=== PATIENT | male | born 1940 | race Caucasian/White ===

== ENCOUNTER 2016-11-17 15:13 | Inpatient (IN) | payer OTHER ==
[~2016-11-17] VITALS: Ht 193 cm; Wt 64.5 kg
--- NOTE | ~2016-11-17 | HC ---
[facility] [place] [address] CONSULTATION Name: ISAAC GONZALEZ Room #: 435-P [facility] IN .R.#: [id number] Admission: 11/17/16 Attend Phys: Cameron Soriano MD Discharge: 11/21/16 Date of : 42 Report #: [id number] THIS REPORT FOR: //name// CC: Faustino Soriano HISTORY OF PRESENT ILLNESS: The patient is a 76-year-old white male with a prior history of gastric cancer status post gastrectomy, who was noted to have multi-infarct dementia with aphasia. He had a fall at home and sustained multiple left-sided rib fractures with a small apical pneumothorax. His legs apparently got tangled up. His notes that he falls essentially annually. He has Itazjqvi-tt-ndeaed protein-calorie malnutrition. We are seeing him in rehabilitation medicine consultation. PAST MEDICAL HISTORY: Includes gastric cancer, subdural hematoma with evacuation, chronic reflux esophagitis, gastrostomy with gastrojejunostomy, rotator cuff surgery, and cholecystectomy. HABITS: Past tobacco use. No history of alcohol abuse. MEDICATIONS: Please see the full medication listing. SOCIAL HISTORY: House, spouse, used a front-wheeled walker, there are two steps in. She is the caregiver and is home with him. She was taking him to outpatient therapy prior to admission. REVIEW OF SYSTEMS: Did not offer any current complaints of chest pain, shortness of breath, or abdominal discomfort. He is a poor historian overall. PHYSICAL EXAMINATION: GENERAL: A 76-year-old white male, pleasant, in no obvious distress. VITAL SIGNS: Last recorded temperature 98.2, pulse 56, respirations 20, and blood pressure 115/71. NEUROLOGIC: The patient is alert. He is slow to speak with his aphasia. Minimal verbalizations. Tends to defer to his . He will follow basic 1 step commands. EXTREMITIES: Functional range of motion of both upper extremities, strength appears to be at least a grade 4+/5. Lower extremities, no focal calf swelling, functional range of motion with strength a grade 4+/5. DTRs are trace to 1. He is sit to stand, contact guard, gait 250 feet contact guard with a front-wheeled walker. No loss of balance. He was able to don and doff his socks standby assistance. ASSESSMENT: A 76-year-old white male with the following problem list: 1. Fall at home. 2. Multiple left-sided rib fractures. 3. Small pneumothorax with repeat x-[place] [address] CONSULTATION Name: ISAAC GONZALEZ Room #: 435-P [facility]#: [id number] Admission: 11/17/16 Attend Phys: Cameron Soriano MD Discharge: 11/21/16 Date of : 42 Report #: [id number] 4. Iwnftzac-cj-moqhwx protein-calorie malnutrition. 5. History of gastric cancer, status post gastrectomy. PLAN: The patient appears to be too high level to warrant an acute [address] [place] [address] inpatient rehabilitation stay. He is ambulating quite well. The is there as his caregiver. We would anticipate he should be able to return directly home with home healthcare as he further medically stabilizes. appears amenable to taking him back home when ready. Thank you for asking us to assist in this patient's care. <ELECTRONICALLY SIGNED> By: Faustino Shen MD 11/23/16 1350 1055 1120 Faustino Shen MD /nt
[~2016-11-17 15:13] MED LIST: ACETAMINOPHEN650 M5 PO; ACYCLOVIR 800800 MG PO; ADVAIR INH; ALEVE220 M1 PO; ARTHROTEC 75 T1 EAC1 PO; ATIVAN0.5 MG PO; AVODART0.5 MG PO; BIAXIN 500 MG500 M1 PO; C-500500 MG PO; CELEXA 20 MG TA20 M1 PO; CENTRUM SILVER1 EAC4 PO; CIMETIDINE300 MG PO; CIPRO250 M1 PO; COLACE 100 MG100 MG PO; DESYREL150 MG; DESYREL50 MG PO; DEXILANT60 MG PO; DOCUSATE SODIU100 MG PO; DOXYCYCLINE 10100 MG PO; DUONEB 2.5-0.5 M3 ML INH; ENSURE PT; FLORANEX PACKET1 GM PO; HYDROCODON-ACE1 EAC7 PO; IBUPROFEN 200200 M1; IBUPROFEN 200200 M1 PO; ITRACONAZOLE 1100 M1 PO; LEVAQUIN 500 M500 M2 PO; LEVOTHYROXIN0.025 MG PO; MELOXICAM7.5 MG PO; METOCLOPRAMIDE 55 M1 PO; MYAMBUTOL 400400 M1; NORCO 5-325 TA1 EACH PO; NYSTATIN1 EAC9 TOP; PREDNISONE50 MG PO; PRILOSEC 20 MG20 MG PO; REMERON15 MG PO; RIFAMPIN 300 M300 M1 PO; ROBITUSSIN DM118 ML PO; ROXICET 5-325 OR5 ML PO; TAMSULOSIN HCL0.4 MG PO; TRAZODONE HCL50 MG PO; TYLENOL325 MG PO; VASOLEX OINTMEN60 G1 TOP; ZOFRAN4 MG PO; [UNRECOGNIZED DRUG - REMARK]
[2016-11-17 15:58] VITALS: BP 101/61
[2016-11-17 18:30] VITALS: BP 110/68
[2016-11-17 18:31] LABS: ABSOLUTE NEUTROPHILS 6.1 thou/uL (1.4-8.2); BASOPHILS 0.5 % (0.0-2.0); EOSINOPHILS 2.3 % (0.0-3.0); HEMATOCRIT 39.7 % (42.0-52.0); HEMOGLOBIN 13.5 gm/dL (14.0-18.0); LYMPHOCYTES 15.6 % (24.0-44.0); MCV 90.9 fL (80.0-100.0); MONOCYTES 8.2 % (1.0-8.0); PLATELET COUNT 151 thou/uL (150-400); POLYS 73.4 % (36.0-66.0); RBC 4.37 mil/uL (4.50-6.00); RDW 14.4 % (10.5-14.5); WBC 8.3 thou/uL (4.0-11.0)
[2016-11-17 18:33] LABS: MANUAL DIFF NO
[2016-11-17 18:40] LABS: CALCIUM 9.2 mg/dL (8.5-10.1); CREATININE 0.9 mg/dL (0.7-1.3); POTASSIUM 4.4 mmol/L (3.5-5.1)
[2016-11-17 18:56] VITALS: BP 117/73
[2016-11-17 19:20] VITALS: BP 111/65
[2016-11-18 03:25] LABS: HEMATOCRIT 36.2 % (42.0-52.0); HEMOGLOBIN 12.3 gm/dL (14.0-18.0); MCH 30.5 pg (26.0-34.0); MCHC 33.9 g/dL (28.0-37.0); RBC 4.03 mil/uL (4.50-6.00); RDW 14.3 % (10.5-14.5); WBC 7.1 thou/uL (4.0-11.0)
[2016-11-18 03:35] VITALS: BP 105/55
[2016-11-18 04:41] LABS: CALCIUM 8.6 mg/dL (8.5-10.1); CREATININE 0.8 mg/dL (0.7-1.3); POTASSIUM 3.9 mmol/L (3.5-5.1)
[2016-11-18 08:00] VITALS: BP 101/62
[2016-11-18 16:00] VITALS: BP 111/71
[2016-11-18 19:35] VITALS: BP 106/64
[2016-11-19 03:40] VITALS: BP 104/65
[2016-11-19 07:38] VITALS: BP 100/58
[2016-11-19 16:00] VITALS: BP 103/57
[2016-11-19 18:34] VITALS: BP 111/75
[2016-11-20 03:50] VITALS: BP 110/68
[2016-11-20 08:00] VITALS: BP 115/71
[2016-11-20 16:00] VITALS: BP 138/55
[2016-11-20 19:20] VITALS: BP 113/65
[2016-11-21 04:05] VITALS: BP 112/68
[2016-11-21 06:24] LABS: HEMATOCRIT 34.6 % (42.0-52.0); HEMOGLOBIN 11.9 gm/dL (14.0-18.0); MCH 30.7 pg (26.0-34.0); MCHC 34.4 g/dL (28.0-37.0); MCV 89.3 fL (80.0-100.0); RBC 3.88 mil/uL (4.50-6.00); RDW 13.9 % (10.5-14.5); WBC 6.2 thou/uL (4.0-11.0)
[2016-11-21 06:34] LABS: CALCIUM 8.6 mg/dL (8.5-10.1); CREATININE 0.7 mg/dL (0.7-1.3)
[2016-11-21 08:37] VITALS: BP 112/72
[2016-11-21] MEDS ORDERED: TYLENOL325 MG PO (15:09)
[2016-11-21] MEDS ORDERED: LIDODERM 5%1 PATCH TRANSDERM (15:10)
== END 2016-11-21 17:08 | DRG 199 ==
LOC: ER 15:13 → 4S 17:26 → EROBS 17:26 → 4S 18:52
PROVIDERS: Hospitalist; Nurse Practitioner
DX: S27.0XXA Traumatic pneumothorax, initial encounter (principal); E43 Unspecified severe protein-calorie malnutrition; S22.42XA Multiple fractures of ribs, left side, initial encounter for closed fracture; Z68.1 Body mass index [BMI] 19.9 or less, adult; F32.9 Major depressive disorder, single episode, unspecified; K21.0 Gastro-esophageal reflux disease with esophagitis; W10.8XXA Fall (on) (from) other stairs and steps, initial encounter; F03.90 Unspecified dementia, unspecified severity, without behavioral disturbance, psychotic disturbance, mood disturbance, and anxiety; Z85.028 Personal history of other malignant neoplasm of stomach; Z90.3 Acquired absence of stomach [part of]; Z90.49 Acquired absence of other specified parts of digestive tract; Z87.01 Personal history of pneumonia (recurrent); Z79.899 Other long term (current) drug therapy; Z91.81 History of falling; Z87.891 Personal history of nicotine dependence; Z88.2 Allergy status to sulfonamides; Z88.6 Allergy status to analgesic agent; Z91.013 Allergy to seafood; Y92.098 Other place in other non-institutional residence as the place of occurrence of the external cause; Y93.89 Activity, other specified; Y99.8 Other external cause status
CPT/HCPCS: 10100

== ENCOUNTER 2018-05-21 05:37 | Inpatient (IN) | payer OTHER ==
[2018-05-21] VITALS (8 sets, daily range): BP systolic 107–125; BP diastolic 67–80
[~2018-05-21] VITALS: Ht 193 cm; Wt 55.3 kg
--- NOTE | ~2018-05-21 | HC ---
[facility] [place] [address] CONSULTATION Name: ISAAC GONZALEZ Room #: 362-P [facility] IN M.R.#: [id number] Admission: 05/21/18 Attend Phys: Vinnie Murillo MD Discharge: Date of : 41 Report #: [id number] THIS REPORT FOR: //name// CC: Faustino Murillo DATE OF SERVICE: 05/22/2018 HISTORY OF PRESENT ILLNESS: The patient is a 77-year-old white male who was admitted with increasing weakness, failure to thrive, decline over the past year. He had a problem with recurrent falls. There is a concern that he may have possible recurrent aspiration pneumonia. He is being covered with antibiotics and further clinical correlation is being assessed. He is noted to have severe debility with cachexia. We are seeing him in rehabilitation medicine consultation. He has a prior history of significant dementia and aphasia due to have multi-infarct history. He has had a past subdural hematoma with evacuation, chronic reflux esophagitis, gastrectomy with gastrojejunostomy tube removed 2010, rotator cuff surgery, cholecystectomy, and depression. ALLERGIES: SHELLFISH, HYDROMORPHONE AND SULFA. SOCIAL HISTORY: Previously, he had been living with his who is his caregiver, who was needing a lot of assistance. He had been utilizing a walker at home. I do not have the most recent historical data on his function prior to admission. REVIEW OF SYSTEMS: Difficult with his dementia. PHYSICAL EXAMINATION: GENERAL: A 77-year-old cachectic white male lying in bed, pleasant, in no obvious distress. He has some facial excoriations. VITAL SIGNS: Temperature is 98.1, pulse 55, respirations 14, blood pressure 144/74. NEUROLOGIC: He can tell me the place, was unable to tell me the year, appeared to be able to tell me basic naming, but there is considerable latency and a lot of dysarthria. We will follow basic 1 step commands. He has functional range of motion of both upper extremities. Strength is grade 4- to 3+/5. Lower extremities functional range of motion, strength is grade 4- to 3+/5. DTRs are trace to 1. Speech therapy has seen him and noted dysphagia and is on a mechanical soft honey thickened liquid diet. ASSESSMENT: A 77-year-old white male with the following problem list: 1. History of multiple infarct with dimension and aphasia. 2. Dysphagia, mechanical soft honey thickened liquid. 3. Recurrent falls. 4. Possible recurrent aspiration pneumonia. [facility] [address] [place] [address] CONSULTATION Name: ISAAC GONZALEZ Room #: 362-P [facility] IN M.R.#: [id number] Admission: 05/21/18 Attend Phys: Vinnie Murillo MD Discharge: Date of : 41 Report #: [id number] 5. Possible sepsis. 6. Cachexia. 7. Stage 2 left gluteal ulcer with wound care involved. PLAN: I am uncertain if he would meet the criteria for an acute in-hospital inpatient rehabilitation stay. At this point, we will follow along with you. Thank you very much to assist in this patient's care. By: 1125 1714 Faustino Shen MD /nt
[~2018-05-21 05:37] MED LIST changes: +CEFUROXIME250 MG PO; +LIDODERM 5%1 PATCH TRANSDERM; +MIRALAX17 GM PO; +TOPROL XL25 MG PO
[2018-05-21 06:48] LABS: HEMATOCRIT 36.3 % (42.0-52.0); HEMOGLOBIN 12.6 gm/dL (14.0-18.0); MCH 30.1 pg (26.0-34.0); MCHC 34.7 g/dL (28.0-37.0); MCV 86.8 fL (80.0-100.0); PLATELET COUNT 161 thou/uL (150-400); RBC 4.18 mil/uL (4.50-6.00); RDW 14.4 % (10.5-14.5); WBC 14.5 thou/uL (4.0-11.0)
[2018-05-21 06:54] LABS: URINE BILIRUBIN NEGATIVE (Negative); URINE BLOOD 1+ (Negative); URINE CLARITY CLEAR; URINE COLOR YELLOW; URINE GLUCOSE-RANDOM* NEGATIVE (Negative); URINE KETONES NEGATIVE (Negative); URINE LEUKOCYTES-REFLEX NEGATIVE (Negative); URINE NITRITE-REFLEX NEGATIVE (Negative); URINE PROTEIN (DIPSTICK) NEGATIVE (Negative); URINE UROBILINOGEN 0.2 E.U./dl (0.2-1.0)
[2018-05-21 06:57] LABS: ANION GAP 9 mmol/L (7-16); BUN 19 mg/dL (7-18); CALCIUM 9.1 mg/dL (8.5-10.1); CHLORIDE 100 mmol/L (98-107); CO2 28 mmol/L (21-32); CREATININE 0.8 mg/dL (0.7-1.3); GLUCOSE 121 mg/dL (74-106); POTASSIUM 3.1 mmol/L (3.5-5.1); SODIUM 137 mmol/L (136-145)
[2018-05-21 07:01] LABS: APTT 29.9 Seconds (24.5-32.8); INR 1.1
[2018-05-21 07:05] LABS: MAGNESIUM 1.8 mg/dL (1.8-2.4); SGOT 69 U/L (15-37); SGPT 30 U/L (30-65); TOTAL BILIRUBIN 0.9 mg/dL (<0.1-1.0); TOTAL PROTEIN 6.6 g/dL (6.4-8.2); TROPONIN-I <0.06 ng/mL (<0.06)
[2018-05-21 07:08] LABS: SQUAMOUS 0-3 Few /LPF (0-3)
[2018-05-21 07:09] LABS: BACTERIA-REFLEX 1-9 Few /HPF (None Seen); CASTS None Seen /LPF (None Seen); CRYSTALS None Seen /LPF (None Seen); MUCUS 0-3 Light strn/LPF (None Seen); URINE WBC-REFLEX 0-5 Rare /HPF (0-5)
[2018-05-21 07:12] LABS: ABSOLUTE NEUTROPHILS 13.8 thou/uL (1.4-8.2); PLATELET ESTIMATE NORMAL
[2018-05-21 07:13] LABS: TOXIC GRANULATION SLIGHT
[2018-05-21] MEDS ORDERED: CIPRO250 M1 PO (08:00)
[2018-05-21] MEDS ORDERED: FLOMAX0.4 MG PO (08:01)
[2018-05-21] MEDS ORDERED: TOPROL XL25 MG PO (08:01)
--- NOTE | 2018-05-21 08:25 | EKG ---
[address] [address] ELECTROCARDIOGRAM REPORT Name: LISAISAAC YAZMIN Room #: 170-10 ADM IN M.R.#: [id number] Admission: 05/21/18 Attend Phys: Vinnie Murillo MD Discharge: Date of : 41 Report #: [id number] THIS REPORT FOR: //name// [facility] ED Test Date: 2018-05-21 Test Time: 07:01:56 Pat Name: ISAAC GONZALEZ Department: Room: 170 Gender: M Entry Engineer: SALINAS : 1940 Requested By: Ventura Agosto Order Number: [id number] MD: Alex Zepeda Measurements Intervals [place] Rate: 75 P: -78 IL: 233 QRS: -20 QRSD: 80 T: 67 QT: 394 QTc: 441 Interpretive Statements Sinus or ectopic atrial rhythm Prolonged IL interval Borderline left axis deviation Anteroseptal infarct, age indeterminate Compared to ECG 11/05/2017 17:51:34 Electronically Signed On 05-21-2018 8:24:55 TIMBER ESTIMATOR by Alex Zepeda [email or web address] <ELECTRONICALLY SIGNED> By: Alex Zepeda MD 05/21/18 0824 0 0 Alex Zepeda MD /MED
--- NOTE | 2018-05-21 09:52 | NUR ---
PT AND FAMILY ORIENTED TO ROOM AND UNIT. BED LOW AND LOCKED, SIDE RAILS UPX 3, CALL LIGHT. WOUBD UPPER SACRAL AREA PHOTOGRAPHED AND WOUND CARE CONSULTED. WILL CONTINUE TO ASSESS.
--- NOTE | 2018-05-21 11:31 | NUR ---
CLEANED DRESSING ON SACRAM AREA AND PLACED OPTIFOAM OVER AREA.
--- NOTE | 2018-05-21 15:00 | NUR ---
GAVE PATIENT BATH, CHANGED LINENES, CHANGED IV DRESSING ON LEFT WRIST
--- NOTE | 2018-05-21 15:22 | NUR ---
WOUND CONSULT: PT. WAS SEEN TODAY BY DR. SYED AND MYSELF. PT. HAS A STAGE 2 PRESSURE ULCER TO HIS SACRUM AND A STAGE 1 TO HIS RIGHT ISCHIAL TUBEROISTY. PT. WOUNDS SHOW NO SIGNS OR SYMPTOMS OF INFECTION AT THIS TIME. RECOMMENDATIONS: MOISTURE BARRIER CREAM TO WOUNDS DAYTON PUMP BOOTS TURN Q2 HOURS PT. AND STAFF NURSE WERE INSTRUCTED ON PLAN OF CARE.
--- NOTE | 2018-05-21 18:06 | NUR ---
PRAFO BOOT PLACED ON PT AND BED FLORICULTURIST USED. PT ATE MOST OF DINNER AND PT AND OT WILL WORK WITH PT IN THE AM.
[2018-05-22 05:20] VITALS: BP 110/66
[2018-05-22 05:38] LABS: HEMATOCRIT 32.3 % (42.0-52.0); HEMOGLOBIN 10.8 gm/dL (14.0-18.0); MCH 29.8 pg (26.0-34.0); MCHC 33.3 g/dL (28.0-37.0); MCV 89.4 fL (80.0-100.0); RBC 3.61 mil/uL (4.50-6.00); RDW 14.9 % (10.5-14.5); WBC 7.8 thou/uL (4.0-11.0)
[2018-05-22 05:54] LABS: CALCIUM 8.3 mg/dL (8.5-10.1); CREATININE 0.9 mg/dL (0.7-1.3); MAGNESIUM 1.9 mg/dL (1.8-2.4); POTASSIUM 3.2 mmol/L (3.5-5.1)
--- NOTE | 2018-05-22 07:32 | NUR ---
ASSUMED PT CARE AT 1900. VSS, PT AWAKE AND ALERT. FOLLOWS COMMANDS BUT APHASIC AND ONLY RESPONDS "YEAH" TO ALL QUESTIONS ASKED. PT IS INCONTINENT. HE HAS A CONDOM CATHETER ON. Q2 TURNS COMPLETED, ASSESSEMENTS AND MEDS GIVEN ARE DOCUMENTED. PT SWALLOWS PILLS WELL. PT SLEPT WELL ALL NIGHT. PT HAD A SMEAR OF BM. WOUND CARE DONE PER ORDERS. PT APPEARS TO BE IN NO APPARENT DISTRESS, WILL CONTINUE TO MONITOR PER POC.
[2018-05-22 10:30] VITALS: BP 144/74
--- NOTE | 2018-05-22 11:01 | NUR ---
WAS IN ROOM OBTAINING VITAL SIGNS, NOTICED THAT PT WAS BRADYCARDIC PER O2 SAT MEASUREMENT, WENT OUT TO MONITOR TO VIEW PT HEART RATE. NOTIFIED JOSE OBANDO THAT PT WAS BRADYCARDIC. PT DID NOT RECEIVE METOPROLOL DUE TO LOW HEART RATE. GERIATRIC TEAM AT BEDSIDE, CAD DRAFTSMAN VERBALIZED TO HOLD ALL PO MEDS AT THIS TIME. VERBAL ORDER ENTERED BY TOPHER AT THIS TIME FOR STAT EKG. AWAITING COW TESTER TO OBTAIN. NOTIFIED ACADEMIC SPECIALIST ABOUT THE SITUATION.
[2018-05-22 12:10] VITALS: BP 117/75
--- NOTE | 2018-05-22 14:34 | NUR ---
WOUND FOLLOW UP: PT. WAS SEEN TODAY BY DR. SYED AND MYSELF. PT. WOUNDS ARE CLINICALLY BETTER TODAY THAN YESTERDAY. RECOMMENDATIONS: CONTINUE WITH CURRENT PLAN OF CARE. PT. AND STAFF NURSE WERE INSTRUCTED ON PLAN OF CARE.
--- NOTE | 2018-05-22 14:54 | NUR ---
DISCHARGE PLANNING. POST ACUTE CARE RECOMMENDED PER ATTENDING AT DISCHARGE. REFERRAL FAXED TO [facility] FOR DC NEEDS. BIANKA/EVAN NOTIFIED OF REFERRAL AND PATIENTS DISCHARGE NEEDS. WILL REVIEW REFERRAL AND CONTACT CM ONCE COMPLETE. FOLLOWING TO ASSIST.
--- NOTE | 2018-05-22 14:59 | NUR ---
INITIAL ASSESSMENT: Received consult for discharge planning. SW reviewed chart and spoke with nursing and attending physician. Pt was admitted from home due to weakess/frequent falls/failure to thrive. P with hx of aphasia. SW met with pt and at bedside. Introduced role of SW. Pt is alert to self. Pt able to only state "yeah" to questions at this time. Pt's states that he is able to communicate at times, and she is able to understand what pt needs. Pt's reports they are working on ordering a tablet device that will assist with pt communicating with others. Pt and are in the process of selling their 3-story home and moving into a one-level home. They will be out of their current home at the end of the month. Pt normally ambulates with a walker. [facility] in the past. Pt has used [facility] and recently did outpatient therapy at [facility]. SW discussed options for post-acute placement. Pt's requests referral to be sent to [facility] for review. Pt's PCP is Dr. Faustino Pittman. city planner to fax referral to [facility]. SW is following to assist as needed with discharge planning.
[2018-05-22 15:42] VITALS: BP 142/72
--- NOTE | 2018-05-22 18:58 | HC ---
[facility] [place] [address] CONSULTATION Name: ISAAC GONZALEZ Room #: 362-P [facility] IN M.R.#: [id number] Admission: 05/21/18 Attend Phys: Vinnie Murillo MD Discharge: Date of : 41 Report #: [id number] THIS REPORT FOR: //name// CC: Faustino Murillo DATE OF SERVICE: 05/21/2018 CHIEF COMPLAINT: Multiple pressure ulcerations following falls. HISTORY OF PRESENT ILLNESS: This is a 77-year-old male patient who was admitted to the hospital through the Emergency Department. The patient was admitted with failure to thrive and generalized weakness. He apparently lives at home with his elderly . He was dropped off by his daughter. There was no one here to answer any questions. The patient is not able to answer any questions. His only answer is "yeah." PAST MEDICAL HISTORY: Positive for dementia, failure to thrive, left hip pain, pneumothorax, recurrent falls and history of shingles. MEDICATION ALLERGIES: INCLUDE SHELLFISH, HYDROMORPHONE AND SULFA. MEDICATIONS: Currently include Cipro, metoprolol, tamsulosin and trazodone. PAST MEDICAL HISTORY: The patient's past medical history also include history of gastric cancer. He has had gastrectomy and jejunostomy. Apparently that tube was removed in 2010. SOCIAL HISTORY: The patient is a previous smoker and previous history of alcohol use. REVIEW OF SYSTEMS: Unobtainable as the patient is unable to answer any questions about himself. PHYSICAL EXAMINATION: VITAL SIGNS: At this time include pulse 69, respiratory rate 22, blood pressure 121/78 and temperature 97.7. GENERAL: This is a chronically ill-appearing male patient who appears to be in mild discomfort. HEENT: Examination of the head is normocephalic. Nose and throat are clear. There is an abrasion to his right cheek area. NECK: Supple. LUNGS: Clear. HEART: Regular. ABDOMEN: Soft. He is generally cachectic and his ribs are very visible. PELVIC: Pelvic region demonstrates what appears to be stage 1 pressure [facility] [address] [place] [address] CONSULTATION Name: ISAAC GONZALEZ Room #: 362-P ADM IN M.R.#: [id number] Admission: 05/21/18 Attend Phys: Vinnie Murillo MD Discharge: Date of : 41 Report #: [id number] ulceration to the right ischial tuberosity. There is a significant area of nonblanching erythema. He has stage 2 pressure ulceration to the left gluteal region. EXTREMITIES: The patient has abrasions to his left knee and heels are intact. LABORATORY DATA: Includes sodium 137, potassium 3.1, chloride 100, CO2 of 28, BUN 19, creatinine 0.8 and glucose 121. Albumin is 3.0 and total protein is 6.6. White blood cell count is 14.5 with hemoglobin 12.6. CLINICAL IMPRESSION: 1. Stage 1 pressure ulcer to the right ischial tuberosity. 2. Stage 2 pressure ulcer of the left gluteal region. 3. Abrasion to the left knee and the right cheek. 4. Advanced dementia. 5. Mild protein calorie malnutrition based on albumin. He would appear to be significantly more malnourished by physical appearance. 6. Cachexia. RECOMMENDATIONS: At this point in time, the patient will require a low air loss mattress. He will also require a bed extension. He will need PRAFO boots while in bed. We will recommend a moisture barrier cream to the sacral and gluteal region. The knee and cheek can be left open to air. He will need q. 2 hour turning and positioning and aggressive nutritional support. We will recommend continuing his current medications. I do appreciate being asked to see him in consultation. <ELECTRONICALLY SIGNED> By: Alfonso Panda MD 05/22/18 1858 1401 2333 Alfonso Panda MD /nt
--- NOTE | 2018-05-22 19:15 | NUR ---
Pt awake and responsive. Pt will attempt to follow simple requests. Generalized weakness. Pt has baseline of some expressive aphasia. Speech is difficult to understand. DUMONT. Out of bed to chair by OT. Sinus bradycardia this morning with rate dipping to 40s. EKG done per Dr Foster order. BP stable. HR increased to sinus rhythm. Metoprolol was held due to bradycardia. expressing concern about Metoprolol and does not want pt receiving this medication. Pt had video swallow in the morning. Pt fed lunch/dinner by HEALTH PROFESSOR. No apparent difficulty with swallowing. Aequate urine output. Saline lock intact R AC with IV infusing at 75 ml/hr. Report given to RN assuming care.
[2018-05-22 20:01] VITALS: BP 131/82
[2018-05-23 04:17] VITALS: BP 121/72
--- NOTE | 2018-05-23 05:07 | NUR ---
Patient making slow progress towards outcome goals. High fall risk, fall precautions in place. Oxygenation optimal on room air. Vital signs stable. Rhytm bradycardic 50's. Denies pain. Incontinent of urine, external male catheter leaking, optifoam applid to coccyx.
[2018-05-23 07:40] VITALS: BP 133/76
--- NOTE | 2018-05-23 09:35 | EKG ---
[address] [place] [address] ELECTROCARDIOGRAM REPORT Name: ISAAC GONZALEZ Room #: 362-P ADM IN M.R.#: [id number] Admission: 05/21/18 Attend Phys: Vinnie Murillo MD Discharge: Date of : 41 Report #: [id number] THIS REPORT FOR: //name// [facility] Test Date: 2018-05-22 Test Time: 11:16:39 Pat Name: ISAAC GONZALEZ Department: Room: 362 P Gender: M Hospital Attendant: Ksenia MCCAULEY : 1940 Requested By: Bradley Patel Order Number: [id number] MD: Quan Osorio Measurements Intervals [place] Rate: 54 P: 75 DE: 215 QRS: 53 QRSD: 101 T: 71 QT: 460 QTc: 436 Interpretive Statements Sinus bradycardia Atrial premature complex Borderline prolonged DE interval septal infarct, age indeterminate Compared to ECG 05/21/2018 07:01:56 Atrial premature complex(es) now present Electronically Signed On 05-23-2018 9:35:30 CLIENT CARE COORDINATOR by Quan Osorio [email or web address] <ELECTRONICALLY SIGNED> By: Quan Osorio MD, [facility] 05/23/18 0935 1116 1116 Quan Osorio MD, [facility] /EPI
[2018-05-23 11:52] VITALS: BP 144/61
--- NOTE | 2018-05-23 13:26 | NUR ---
SW reviewed chart and spoke with attending physician. Pt is progressing towards goals for discharge. Discharge anticipated in 1-2 days. HOMER faxed updated clinical and therapy notes to [facility] for review. Notified [facility] liaison and admissions of anticipated discharge. Awaiting input from [facility] at this time. HOMER is following to assist as needed with discharge planning.
--- NOTE | 2018-05-23 14:08 | NUR ---
WOUND FOLLOW UP: PT. WAS SEEN TODAY BY DR. SYED AND MYSELF. PT. WOUNDS ARE CLINICALLY BETTER AT THIS TIME. RECOMMENDATIONS: CONTINUE WITH CURRENT PLAN OF CARE. PT. AND STAFF NURSE WERE INSTRUCTED ON PLAN OF CARE.
[2018-05-23 17:03] VITALS: BP 137/78
--- NOTE | 2018-05-23 18:44 | NUR ---
care of pt assumed this am @ 0700. pt w/ expressive asphasia, verbalizing "yeah" to all yes and no questions even when the rn knew the answers were no. pt given a pad a paper to write out requests, able to right out 'bed' when he wanted to leave his chair and go back to bed. pt w/ a very poor appetite, need for set up tray, only consumed 20-25% of each meal today. pt encouraged to drink his honey thick liquids, but not happy about the drinks. spoke w/ on phone and she said that he does not like honey thick liquids. asked for liquid supplements/ensure w/ meal trays to increase the calories he needs in a day. ivf infusing. condom cath used rt incontinence of urine. multiple stools today that pt was incontinent of. rn from [facility] here to assess pt for transfer to their facility in the next few days.
[2018-05-23 20:21] VITALS: BP 156/79
--- NOTE | 2018-05-24 04:19 | NUR ---
Patient making slow progress towards outcome goals. Appetite poor, took sips of liquids and ate ensure pudding. IVFluids infusing. Incontinent of bowel and bladder. External male catheter replaced. Turned to sides. Vital signs and rhythm stable.
[2018-05-24 04:49] VITALS: BP 109/62
[2018-05-24 04:51] LABS: HEMATOCRIT 34.2 % (42.0-52.0); HEMOGLOBIN 11.6 gm/dL (14.0-18.0); MCH 30.6 pg (26.0-34.0); RBC 3.79 mil/uL (4.50-6.00); RDW 14.8 % (10.5-14.5); WBC 5.6 thou/uL (4.0-11.0)
[2018-05-24 05:05] LABS: CALCIUM 8.9 mg/dL (8.5-10.1); CREATININE 0.9 mg/dL (0.7-1.3); POTASSIUM 4.1 mmol/L (3.5-5.1)
[2018-05-24 07:18] VITALS: BP 110/77
--- NOTE | 2018-05-24 08:47 | NUR ---
PT SITTING UP IN BED EATING BREAKFAST.AM MEDS GIVEN AND TX'S TO FACIAL ABRASION AREAS AND LEFT KNEE ORDERED. IV ABT AND FLUIDS INFUSING ORDERED.
--- NOTE | 2018-05-24 15:13 | NUR ---
PT UP IN BEDSIDE CHAIR. CONT ON IV FLUIDS AND IV ABT. PT TO DISCHARGE TO [facility] TOMMORROW.
--- NOTE | 2018-05-24 16:03 | NUR ---
HOMER reviewed chart and spoke with nursing and attending physician. Pt is progressing towards goals for discharge. Discharge to SNF is anticipated for tomorrow. HOMER discussed case with [facility] liaison, who states they are able to admit pt tomorrow. HOMER spoke with pt's via phone to provide update. Pt's would prefer mid-afternoon transportation if available. Final discharge orders/summary will need to be faxed to [facility]. Weekend residential coordinator will arrange transportation. Chart copy will need to be updated. SW is available should needs arise. [place]-- Admissions: [phone]
[2018-05-24 16:39] VITALS: BP 152/94
--- NOTE | 2018-05-24 16:39 | NUR ---
WOUND FOLLOW UP: PT. WAS SEEN TODAY BY DR. SYED AND MYSELF. PT. WOUNDS ARE CLINICALLY BETTER. RECOMMENDATIONS: CONTINUE WITH CURRENT PLAN OF CARE. PT. AND STAFF NURSE WERE INSTRUCTED ON PLAN OF CARE.
[2018-05-24 20:04] VITALS: BP 149/81
--- NOTE | 2018-05-25 02:41 | NUR ---
patient is alert. patient has expressive asphia. unable to assess orientation. patient has some breakdown on coccyx but is able to turn self. patient refused to be repositioned when asked. patient is incontient patient has an exturnal male cath. patient is on room air. patient is on thickened liquids (honey) and mechanical choped diet. patient does not appear to be in any pain. patientis had a complete bed change. patient is resting comfortabley in bed. wcm. patient is progressing to goals
[2018-05-25 05:27] VITALS: BP 131/76
[2018-05-25 08:17] VITALS: BP 141/71
[2018-05-25] MEDS ORDERED: AUGMENTIN 875-1 EACH PO (10:47)
[2018-05-25] MEDS ORDERED: BACITRACIN ZIN120 GM TOP (10:47)
[2018-05-25] MEDS ORDERED: ACETAMINOPHEN325 M1 PO (10:47)
--- NOTE | 2018-05-25 11:49 | NUR ---
DISCHARGING TO [facility] TODAY. [facility] PER TELE. [facility]. SWITCHING TO [facility]. WILL CALL REPORT, FAX DISCHARGE SUMMARY TO [facility] FOR DISCHARGE THIS AFTERNOON. FREQUENT CHECKS; WILL CONTINUE TO MONITOR.
[2018-05-25 11:54] VITALS: BP 130/74
== END 2018-05-25 16:40 | DRG 871 ==
LOC: ER 05:37 → 3W 07:56 → EROBS 07:56 → 3W 08:45
PROVIDERS: Emergency Medicine; ADMIT Internal Medicine
DX: A41.9 Sepsis, unspecified organism (principal); J69.0 Pneumonitis due to inhalation of food and vomit; E43 Unspecified severe protein-calorie malnutrition; Z68.1 Body mass index [BMI] 19.9 or less, adult; F32.9 Major depressive disorder, single episode, unspecified; F03.90 Unspecified dementia, unspecified severity, without behavioral disturbance, psychotic disturbance, mood disturbance, and anxiety; Z88.6 Allergy status to analgesic agent; R62.7 Adult failure to thrive; S09.90XA Unspecified injury of head, initial encounter; L89.311 Pressure ulcer of right buttock, stage 1; L89.322 Pressure ulcer of left buttock, stage 2; S80.212A Abrasion, left knee, initial encounter; S00.81XA Abrasion of other part of head, initial encounter; R13.10 Dysphagia, unspecified; E87.6 Hypokalemia; K21.9 Gastro-esophageal reflux disease without esophagitis; Z66 Do not resuscitate; N40.0 Benign prostatic hyperplasia without lower urinary tract symptoms; Z86.73 Personal history of transient ischemic attack (TIA), and cerebral infarction without residual deficits; Z85.028 Personal history of other malignant neoplasm of stomach; Z90.3 Acquired absence of stomach [part of]; Z90.49 Acquired absence of other specified parts of digestive tract; Z88.2 Allergy status to sulfonamides; Z91.013 Allergy to seafood; Z93.4 Other artificial openings of gastrointestinal tract status; Z87.891 Personal history of nicotine dependence; Z23 Encounter for immunization; X58.XXXA Exposure to other specified factors, initial encounter; Y93.89 Activity, other specified; Y92.89 Other specified places as the place of occurrence of the external cause; Y99.8 Other external cause status
CPT/HCPCS: 10879

== ENCOUNTER 2018-07-15 16:54 | Inpatient (IN) | payer OTHER ==
[~2018-07-15] VITALS: Ht 193 cm; Wt 53.1 kg
[2018-07-15 16:54] VITALS: BP 115/69
[~2018-07-15 16:54] MED LIST changes: +ACETAMINOPHEN325 M1 PO; +AUGMENTIN 875-1 EACH PO; +BACITRACIN ZIN120 GM TOP; +FLOMAX0.4 MG PO
[2018-07-15 19:03] LABS: HEMATOCRIT 37.9 % (42.0-52.0); HEMOGLOBIN 12.9 gm/dL (14.0-18.0); MCH 30.7 pg (26.0-34.0); MCV 90.1 fL (80.0-100.0); RBC 4.21 mil/uL (4.50-6.00); RDW 16.3 % (10.5-14.5); WBC 9.4 thou/uL (4.0-11.0)
[2018-07-15 19:17] LABS: ANION GAP 9 mmol/L (7-16); BUN 19 mg/dL (7-18); CALCIUM 9.2 mg/dL (8.5-10.1); CHLORIDE 101 mmol/L (98-107); CO2 28 mmol/L (21-32); CREATININE 0.8 mg/dL (0.7-1.3); GLUCOSE 85 mg/dL (74-106); POTASSIUM 3.6 mmol/L (3.5-5.1); SODIUM 138 mmol/L (136-145)
[2018-07-15 19:25] LABS: ALBUMIN 2.7 g/dL (3.4-5.0); LIPASE 900 U/L (73-393); SGOT 194 U/L (15-37); SGPT 164 U/L (30-65); TOTAL BILIRUBIN 3.4 mg/dL (<0.1-1.0); TOTAL PROTEIN 6.5 g/dL (6.4-8.2); TROPONIN-I <0.06 ng/mL (<0.06)
[2018-07-15 21:41] LABS: URINE BILIRUBIN 1+ (Negative); URINE BLOOD 3+ (Negative); URINE CLARITY SL CLOUDY; URINE COLOR YELLOW; URINE GLUCOSE-RANDOM* NEGATIVE (Negative); URINE KETONES NEGATIVE (Negative); URINE PROTEIN (DIPSTICK) NEGATIVE (Negative); URINE UROBILINOGEN >= 8.0 E.U./dl (0.2-1.0)
[2018-07-15 21:53] LABS: URINE LEUKOCYTES-REFLEX 2+ (Negative); URINE NITRITE-REFLEX POSITIVE (Negative)
[2018-07-15 21:55] LABS: BACTERIA-REFLEX >30 Many /HPF (None Seen); CASTS None Seen /LPF (None Seen); CRYSTALS None Seen /LPF (None Seen); MUCUS 0-3 Light strn/LPF (None Seen); SQUAMOUS 0-3 Few /LPF (0-3); URINE RBC >20 Many /HPF (0-2); URINE WBC-REFLEX >25 Many /HPF (0-5); WBC CLUMPS Few (None Seen)
[2018-07-15 23:32] VITALS: BP 146/72
[2018-07-16 01:18] VITALS: BP 138/82
--- NOTE | 2018-07-16 01:24 | NUR ---
PT ARRIVED FROM ED 2345. ASSESSMENT COMPLETE. ADMISSION COMPLETED. ISOLATION PRECAUTIONS IMPLEMENTED. VSS. PT RESTING COMFORTABLY IN BED. REPORT GIVEN TO ONCOMING NURSE.
[2018-07-16 07:27] VITALS: BP 107/73
[2018-07-16 07:52] LABS: HEMATOCRIT 31.6 % (42.0-52.0); MCH 30.4 pg (26.0-34.0); MCHC 33.8 g/dL (28.0-37.0); MCV 89.9 fL (80.0-100.0); RBC 3.51 mil/uL (4.50-6.00); RDW 15.8 % (10.5-14.5); WBC 12.7 thou/uL (4.0-11.0)
[2018-07-16 07:58] LABS: HEMOGLOBIN 10.7 gm/dL (14.0-18.0)
[2018-07-16 08:00] LABS: CALCIUM 8.7 mg/dL (8.5-10.1); CREATININE 0.8 mg/dL (0.7-1.3); POTASSIUM 3.5 mmol/L (3.5-5.1)
--- NOTE | 2018-07-16 08:31 | EKG ---
[address] [place] [address] ELECTROCARDIOGRAM REPORT Name: ISAAC GONZALEZ Room #: 454-P ADM IN M.R.#: [id number] ������������������ Admission: 07/15/18 ������������������ Attend Phys: Cameron Soriano MD Discharge: ������������������ Date of : 42 Report #: [id number] ����������������������������������������������������������������� [id number] THIS REPORT FOR: //name// [facility] ED Test Date: 2018-07-15 Test Time: 19:36:31 Pat Name: ISAAC GONZALEZ Department: Room: [facility] Gender: M Quality Assurance Associate: MELY : 1940 Requested By: Noemi Jackson Order Number: [id number] MD: Alex Zepeda Measurements Intervals [place] Rate: 81 P: 76 MO: 171 QRS: -3 QRSD: 89 T: 75 QT: 370 QTc: 430 Interpretive Statements Sinus rhythm Atrial premature complexes Probable left atrial enlargement Anteroseptal infarct, age indeterminate Baseline wander in lead(s) V1 Compared to ECG 05/22/2018 11:16:39 Sinus bradycardia no longer present Myocardial infarct finding still present Electronically Signed On 07-16-2018 8:31:24 CDT by Alex Zepeda [email or web address] ��������������������������������������������� <ELECTRONICALLY SIGNED> ���������������������������������������� By: Alex Zepeda MD ��������������������������������������������� 07/16/1831 35 35 Alex Zepeda MD /EPI
--- NOTE | 2018-07-16 13:49 | NUR ---
PT ADMITTED RELATED TO [facility]ECAL IMPACTION. CM REVIEWED CHART AND SPOKE WITH CARE TEAM. CM MET WITH PT AND SPOUSE AT BEDSIDE THIS DAY. SPOUSE ANSWERED ASSESSMENT QUESTIONS. SHE INDICATED THAT THEY MOVED INTO AN APARTMENT ABOUT 2 WEEKS AGO. SHE INDICATED THERE IS 1 STEP TO ENTER AND NO STEPS INSIDE. PT INDICATED PT HAD USED A FWW, 4WW, SHOWER CHAIR, TOILET RISER, AND TRANSPORT CHAIR FOR HOME USE. SPOUSE INDICATED PT HAD BEEN ON SERVICE WITH [employer] [facility] AND THAT THEY WOULD LIKE TO USE THEM AGAIN UPON DC. SHE INDICATED SHE WISHES TO TAKE PT HOME ONCE MEDICALLY STABLE. CM TO FOLLOW INDICATED WITH DC PLANNING.
[2018-07-16 14:14] LABS: % SATURATION 10 % (20-39); IRON 12 ug/dL (65-175); TIBC 121 ug/dL (250-450)
--- NOTE | 2018-07-16 14:31 | NUR ---
DP sent initial referral to [facility] for patient.
[2018-07-16 15:30] VITALS: BP 128/88
--- NOTE | 2018-07-16 18:24 | NUR ---
DR VERGARA AWARE OF POSITIVE BLOOD CULTURE, WAS CRITICAL LAB.
[2018-07-16 19:53] VITALS: BP 130/83
[2018-07-17 04:06] LABS: CA 125 61.5 U/mL (Not Estab.)
[2018-07-17 04:08] VITALS: BP 125/73
--- NOTE | 2018-07-17 04:46 | NUR ---
ASSUMED CARE OF PT FROM PREVIOUS SHIFT PT RESTING IN BED INCONITENT WITH 3 LARGE STOOLS AFTER ENEMA GIVEN , TURNED EVERY 2 HOURS, SKIN INTACT. INFECTION CONTROL NURSE SHOWS NSR , WILL CONINTUE WITH CURRENT PLAN OF CARE.
[2018-07-17 06:32] LABS: ALBUMIN 2.2 g/dL (3.4-5.0); CALCIUM 8.2 mg/dL (8.5-10.1); CREATININE 0.8 mg/dL (0.7-1.3); TOTAL BILIRUBIN 1.3 mg/dL (<0.1-1.0); TOTAL PROTEIN 5.9 g/dL (6.4-8.2)
[2018-07-17 06:33] LABS: POTASSIUM 2.9 mmol/L (3.5-5.1)
[2018-07-17 07:31] VITALS: BP 149/83
[2018-07-17 08:46] LABS: ABSOLUTE NEUTROPHILS 7.2 thou/uL (1.4-8.2); BASOPHILS 0.4 % (0.0-2.0); EOSINOPHILS 0.6 % (0.0-3.0); HEMOGLOBIN 10.3 gm/dL (14.0-18.0); LYMPHOCYTES 6.9 % (24.0-44.0); MCH 30.9 pg (26.0-34.0); MCHC 34.2 g/dL (28.0-37.0); MCV 90.5 fL (80.0-100.0); MONOCYTES 8.7 % (1.0-8.0); PLATELET COUNT 158 thou/uL (150-400); POLYS 83.4 % (36.0-66.0); RBC 3.32 mil/uL (4.50-6.00); RDW 16.4 % (10.5-14.5); WBC 8.6 thou/uL (4.0-11.0)
[2018-07-17 09:13] LABS: HAV IgM AB (ANTI-HAV IgM) Negative (Negative); HEPATITIS B SURFACE AG Negative (Negative); HEPATITIS C VIRUS AB 0.2 (0.0-0.9)
[2018-07-17 14:26] VITALS: BP 134/85
[2018-07-17 15:08] LABS: CERULOPLASMIN 26.8 mg/dL (16.0-31.0)
--- NOTE | 2018-07-17 15:13 | NUR ---
ASSUMED CARE 0700. ALERT TO SELF, AWAKE, ABLE TO GIVE THUMBS UP/DOWN SIGNS WHEN ASKING YES/NO QUESTIONS. PT'S CONCERNED WITH NECTOR THICK LIQUIDS AND CAUSING CONSTIPATION. DR VERGARA AND CLAU VALENZUELA AND [facility] ROUND AND EDUCATED PT'S TO EXPLAIN NECTOR THICK LIQUIDS, BP MEDS, AND CONSTIPATION. ASSIST X1 WITH WALKER/GAIT BELT. FALL PRECAUTIONS IN PLACE. DOES NOT USE CALL LIGHT APPROPRIATELY. STAFF TO ANTICIPATE NEEDS
[2018-07-17 19:45] VITALS: BP 135/84
[2018-07-18 03:40] VITALS: BP 125/71
[2018-07-18 05:48] LABS: BASOPHILS 0.5 % (0.0-2.0); EOSINOPHILS 1.1 % (0.0-3.0); HEMATOCRIT 29.8 % (42.0-52.0); HEMOGLOBIN 10.3 gm/dL (14.0-18.0); LYMPHOCYTES 10.1 % (24.0-44.0); MCHC 34.4 g/dL (28.0-37.0); MONOCYTES 8.7 % (1.0-8.0); PLATELET COUNT 161 thou/uL (150-400); POLYS 79.6 % (36.0-66.0); RBC 3.31 mil/uL (4.50-6.00); RDW 16.2 % (10.5-14.5); WBC 6.2 thou/uL (4.0-11.0)
[2018-07-18 06:04] LABS: ALBUMIN 2.3 g/dL (3.4-5.0); CALCIUM 8.8 mg/dL (8.5-10.1); CREATININE 0.7 mg/dL (0.7-1.3); DIRECT BILIRUBIN 0.4 mg/dL (<0.1-0.3); MAGNESIUM 1.8 mg/dL (1.8-2.4); POTASSIUM 3.3 mmol/L (3.5-5.1); TOTAL BILIRUBIN 0.8 mg/dL (<0.1-1.0); TOTAL PROTEIN 5.8 g/dL (6.4-8.2)
--- NOTE | 2018-07-18 07:52 | NUR ---
PATIENT WAS COOPERATIVE AND SLEPT PART OF THE NOGHT. PATIENT WAS NON-VERBAL BUT IS ABLE TO FOLLOW SIMPLE INSTRUCTIONS AND POINTS AT THINGS HE WANTS. PATIENT HAVE A POSITIVE URINE CULTURE FOR E-COLI AND Mildred BUITRAGO WAS NOTIFIED. PATIENT WAS INCONTINENT DURING THE SHIFT. PATIENT IS NOT PROGRESSING TOWADS DISCHARGE GOALS AT THIS TIME.
[2018-07-18 08:30] VITALS: BP 138/73
[2018-07-18 10:07] LABS: CEA 2.8 ng/mL (0.0-4.7)
--- NOTE | 2018-07-18 14:23 | NUR ---
CARE TEAM INDIATED THAT PT'S SPOUSE STILL NOT RECEPTIVE TO HOSPICE OR PALLIATIVE CARE SERVICES AND IS LEARY OF POST ACUTE/NURISNG FACILITIES. SPOUSE INDICATED DESIRE FOR PT TO RETURN HOME ONCE MEDICALLY STABLE WITH [facility]. CM TO FOLLOW INDICATED WITH DC PLANNING.
--- NOTE | 2018-07-18 15:04 | NUR ---
ASSUMED CARE 0700. ALERT TO SELF. WILL INDICATE WITH POINTING WHEN HE WANTS THE TEMPT CHANGED OR WANTING TO A DRINK. PT CONTINUE ON NECTOR THICK LIQUIDS AND ADVANCING DIET TO PUREE. ST POSTED YELLOW SIGN IN ROOM. NEW IV IN RIGHT FORARM. PROGRESSING TOWARDS GOALS. FALL PRECAUTIONS IN PLACE. DOES NOT USE CALL LIGHT. STAFF TO ANTICIPATE NEEDS.
[2018-07-18 15:33] VITALS: BP 124/64
[2018-07-18 17:09] LABS: IgG 1140 mg/dL (700-1600)
[2018-07-18 19:32] VITALS: BP 139/73
--- NOTE | 2018-07-19 01:54 | NUR ---
PT CONFUSED DURING THE NIGHT PT TURNED Q2 PT NOT IN ANY PAIN NO ISSUES OVERNIGHT.
[2018-07-19 03:29] VITALS: BP 144/72
[2018-07-19 07:25] VITALS: BP 146/86
[2018-07-19 09:52] LABS: HEMATOCRIT 34.4 % (42.0-52.0); HEMOGLOBIN 11.4 gm/dL (14.0-18.0); MCH 30.2 pg (26.0-34.0); MCHC 33.2 g/dL (28.0-37.0); MCV 91.1 fL (80.0-100.0); RBC 3.78 mil/uL (4.50-6.00); RDW 16.2 % (10.5-14.5); WBC 5.2 thou/uL (4.0-11.0)
[2018-07-19 09:58] LABS: CALCIUM 8.5 mg/dL (8.5-10.1); CREATININE 0.7 mg/dL (0.7-1.3); MAGNESIUM 1.7 mg/dL (1.8-2.4); POTASSIUM 3.1 mmol/L (3.5-5.1)
[2018-07-19 13:11] LABS: ANA INTERPRETATION Negative (Negative)
--- NOTE | 2018-07-19 13:47 | NUR ---
CM FOLLOWED UP WITH PT'S SPOUSE TO DETERMINE DC PLANNING PREFERENCES. SHE INDICATED THAT SHE WAS STILL NOT RECEPTIVE TO HOSPITCE, PALLIATIVE CARE, OR POST ACUTE CARE STAY. SHE INDICATED SHE ANTICPATED PT RETURNING HOME WITH [facility]. CM INDICATED THAT CARE TEAM ARE RECOMMENDING 24/7 SUPERVISION UPON DC AND THAT PT STAY ON A MECHSFT DIET WITH HONEY THICK LIQUIDS, SPOUSE INDICATED SHE UNDERSTOOD THAT AND THAT SHE WAS ABLE TO PROVIDE THAT. WE ARE AWAITING REPEAT BLOOD CULTURES TO SHOW NO [place] 24HRS BEFORE DC. IF LABS ARE RECIEVED OVER WEEKEND CONTACT [facility] AT FAX ORDERS TO . PT'S SPOUSE AND DTR TO PROVIDE TRANSPORTATION HOME. CM TO FOLLOW INDICATED WITH DC PLANNING.
[2018-07-19 15:33] VITALS: BP 128/77
--- NOTE | 2018-07-19 18:25 | NUR ---
PROGRESSING TOWARDS GOALS TOLERATING PUREED DIET AND NECTOR LIQUIDS. INCONTINENT OF BLADDER NOT BM NOTED AT THIS TIME. TREATED POTASSIUM PER PROTOCOL, WNL AT THIS TIME. FALL PRECAUTIONS IN PLACE. STAFF TO ANTICIPATE NEEDS
[2018-07-19 19:50] VITALS: BP 147/84
--- NOTE | 2018-07-20 01:41 | NUR ---
PT TURNED Q2 PT SLEPT MOST OF THE NIGHT NO ISSUES OF PAIN OR NAUSEA NO ISSUES OVERNIGHT.
[2018-07-20 04:17] VITALS: BP 133/69
[2018-07-20 06:03] LABS: ALBUMIN 2.3 g/dL (3.4-5.0); DIRECT BILIRUBIN 0.3 mg/dL (<0.1-0.3); TOTAL BILIRUBIN 0.6 mg/dL (<0.1-1.0); TOTAL PROTEIN 5.8 g/dL (6.4-8.2)
[2018-07-20 07:52] VITALS: BP 146/79
[2018-07-20] MEDS ORDERED: IPRAT-ALBUT 0.5-3 ML INH (13:39)
[2018-07-20] MEDS ORDERED: AUGMENTIN400 MG/53 PO (13:39)
[2018-07-20] MEDS ORDERED: MIRALAX17 GM PO (13:39)
[2018-07-20 16:22] VITALS: BP 133/88
[2018-07-20 16:37] VITALS: BP 133/88
--- NOTE | 2018-07-20 17:15 | NUR ---
PT STABLE THROUGHOUT SHIFT. PT UP TO CHAIR FOR SEVERAL HOURS WHICH HE TOLERATED WELL. PT TO DISCHARGE THIS EVENING HOME WITH HOME HEALTH. CALLED AGENCY, FAXED ORDERS. DISCHARGE INSTRUCIONS REVIEWED WITH SPOUSE, RX'S GIVEN. PT TO LEAVE UNIT VIA WHEELCHAIR TO PRIVATE VEHICLE.
== END 2018-07-20 18:30 | disposition home health service (06) | DRG 871 ==
LOC: ER 16:54 → 4W 22:11 → EROBS 22:11 → 4W 23:33
PROVIDERS: Nurse Practitioner; Nurse Practitioner Family; Student in an Organized Health Care Education/Training Program; ADMIT Internal Medicine
DX: A41.51 Sepsis due to Escherichia coli [E. coli] (principal); J69.0 Pneumonitis due to inhalation of food and vomit; K85.90 Acute pancreatitis without necrosis or infection, unspecified; E43 Unspecified severe protein-calorie malnutrition; Z68.1 Body mass index [BMI] 19.9 or less, adult; N39.0 Urinary tract infection, site not specified; A41.50 Gram-negative sepsis, unspecified; F32.9 Major depressive disorder, single episode, unspecified; F03.90 Unspecified dementia, unspecified severity, without behavioral disturbance, psychotic disturbance, mood disturbance, and anxiety; E80.6 Other disorders of bilirubin metabolism; R74.0 Nonspecific elevation of levels of transaminase and lactic acid dehydrogenase [LDH]; R62.7 Adult failure to thrive; I10 Essential (primary) hypertension; D64.9 Anemia, unspecified; K56.41 Fecal impaction; N40.0 Benign prostatic hyperplasia without lower urinary tract symptoms; E87.6 Hypokalemia; R13.10 Dysphagia, unspecified; Z66 Do not resuscitate; Z85.028 Personal history of other malignant neoplasm of stomach; Z90.3 Acquired absence of stomach [part of]; Z90.49 Acquired absence of other specified parts of digestive tract; Z87.891 Personal history of nicotine dependence; Z88.2 Allergy status to sulfonamides; Z88.6 Allergy status to analgesic agent; Z91.013 Allergy to seafood; I69.320 Aphasia following cerebral infarction; Z91.19 Patient's noncompliance with other medical treatment and regimen; Z79.899 Other long term (current) drug therapy; Z23 Encounter for immunization
CPT/HCPCS: 10045